=== PATIENT | female | born 1985 | race Caucasian/White ===

== ENCOUNTER 2016-04-26 18:05 | Emergency (ER) | payer OTHER ==
[2016-04-26 18:25] VITALS: BP 129/76
--- NOTE | 2016-04-26 18:50 | ER Document Report ---
ED Medical Screen (RME) - General Chief Complaint: Laceration Stated Complaint: LIP PAIN Mode of Arrival: Ambulatory Information source: Patient Notes: Patient states that her child jumped up hitting her lower lip. Patient with superficial lacerations inside lower lip. I have greeted and performed a rapid initial assessment of this patient. A comprehensive ED assessment and evaluation of the patient, analysis of test results and completion of the medical decision making process will be conducted by additional ED providers. TRAVEL OUTSIDE OF THE [place] IN LAST 30 DAYS: No - Related Data Allergies/Adverse Reactions: No Known Allergies Allergy (Verified 04/26/16 18:47) Past Medical History Musculoskeltal Medical History: Reports Hx Arthritis Past Surgical History: Reports: Hx Orthopedic Surgery - right knee - Immunizations Hx Diphtheria, Pertussis, Tetanus Vaccination: Yes Physical Exam - Vital signs Vitals: Temp Pulse Resp BP Pulse Ox 98.1 F 80 16 129/76 H 100 04/26/16 18:24 04/26/16 18:24 04/26/16 18:24 04/26/16 18:24 04/26/16 18:24 - Skin Skin irregularity: Laceration - Inside lower lip Course - Vital Signs Vital signs: Temp Pulse Resp BP Pulse Ox 98.1 F 80 16 129/76 H 100 04/26/16 18:24 04/26/16 18:24 04/26/16 18:24 04/26/16 18:24 04/26/16 18:24
--- NOTE | 2016-04-26 19:03 | ER Document Report ---
ED Wound - General Chief Complaint: Laceration Stated Complaint: LIP PAIN Time seen by provider: 18:58 Mode of Arrival: Ambulatory Information source: Patient Notes: 31-year-old female with no medical problems who was leaning down taking care of her son when son popped up hitting the patient in the chin. The patient presents with a laceration to inside of the lower lip from her upper teeth. TRAVEL OUTSIDE OF THE [place] IN LAST 30 DAYS: No - HPI Patient complains to provider of: Laceration Occurred: Just prior to arrival Onset/Duration: Sudden Quality of pain: Other - Minimal discomfort Severity: Mild Pain Level: 1 Context: Injury Skin Color: Normal Capillary refill: < 3 seconds Sensations intact: Yes Associated Symptoms: None - Related Data Allergies/Adverse Reactions: No Known Allergies Allergy (Verified 04/26/16 18:47) Past Medical History - General Information source: Patient - Social History Smoking Status: Current Every Day Smoker Cigarette use (# per day): Yes - half pack per day Chew tobacco use (# tins/day): No Frequency of alcohol use: Occasional Drug Abuse: None Lives with: Family Family History: Reviewed & Not Pertinent Patient has suicidal ideation: No Patient has homicidal ideation: No - Medical History Medical History: Negative Renal/ Medical History: Denies: Hx Peritoneal Dialysis Musculoskeltal Medical History: Reports Hx Arthritis Past Surgical History: Reports: Hx Orthopedic Surgery - right knee - Immunizations Hx Diphtheria, Pertussis, Tetanus Vaccination: Yes Review of Systems - Review of Systems Constitutional: No symptoms reported EENT: See HPI Cardiovascular: No symptoms reported Respiratory: No symptoms reported Gastrointestinal: No symptoms reported Genitourinary: No symptoms reported Female Genitourinary: No symptoms reported Musculoskeletal: No symptoms reported Skin: No symptoms reported Hematologic/Lymphatic: No symptoms reported Physical Exam - Vital signs Vitals: Temp Pulse Resp BP Pulse Ox 98.1 F 80 16 129/76 H 100 04/26/16 18:24 04/26/16 18:24 04/26/16 18:24 04/26/16 18:24 04/26/16 18:24 Notes: Physical exam: GENERAL: 81-year-old female, alert and oriented 3, no acute distress HEAD: Atraumatic, normocephalic. EYES: Pupils equal round and reactive to light, extraocular movements intact, sclera anicteric, conjunctiva are normal. ENT: Oral cavity clear. No loose teeth. The lower lip does have a laceration which is limited and does not extend to the scan. There is no active bleeding. NECK: Supple Face: The external face around the lower lip and chin show no evidence of laceration. Course - Re-evaluation Re-evalutation: 04/26/16 19:02 The laceration to the lower lip looks like it will heal well without sutures. I 've discussed this with the patient she seems fine with it. Her tetanus is up- to-date. - Vital Signs Vital signs: Temp Pulse Resp BP Pulse Ox 98.1 F 80 16 129/76 H 100 04/26/16 18:24 04/26/16 18:24 04/26/16 18:24 04/26/16 18:24 04/26/16 18:24 Discharge - Discharge Clinical Impression: lip laceration Condition: Stable Disposition: HOME, SELF-CARE Additional Instructions: Recommendations: As we discussed, this laceration will heal very well without sutures. Go with salt water rinses or Listerine rinses twice daily. This laceration usually heals over the next week. Return to the emergency room for any concerns that it is not healing, increased pain, fever or increased swelling.
== END 2016-04-26 19:05 | disposition home or self-care (01) ==
LOC: ER 18:05
DX: S01.511A Laceration without foreign body of lip, initial encounter (principal); W51.XXXA Accidental striking against or bumped into by another person, initial encounter; Y93.F9 Activity, other caregiving; F17.210 Nicotine dependence, cigarettes, uncomplicated
CPT/HCPCS: 99282

== ENCOUNTER → 2017-08-03 | Outpatient (CLI) | payer OTHER ==
--- NOTE | 2017-08-03 18:29 | WOMENS IMAGING REPORT ---
EXAM DESCRIPTION: BILAT DIAGNOSTIC MAMMO W/CAD; U/S BREAST UNILAT LIMITED COMPLETED DATE/TIME: 08/03/2017 8:54 am; 08/03/2017 10:39 am REASON FOR STUDY: UNSPECIFIED LUMP; N63.0; BREAST LUMP N63.0 UNSPECIFIED LUMP IN UNSPECIFIED BREAS T COMPARISON: None. TECHNIQUE: Standard craniocaudal and mediolateral oblique views of each breast recorded using digita l acquisition. Bilateral 90 mediolateral views were obtained. Bilateral cone compression in the CC and MLO orienta tions. Bilateral breast ultrasound was also performed. LIMITATIONS: None. FINDINGS: RIGHT BREAST MASSES: No suspicious masses. CALCIFICATIONS: No new or suspicious calcifications. ARCHITECTURAL DISTORTION: None. DEVELOPING DENSITY: None. ASYMMETRY: None noted. OTHER: No other significant findings. LEFT BREAST MASSES: No suspicious masses. CALCIFICATIONS: No new or suspicious calcifications. ARCHITECTURAL DISTORTION: None. DEVELOPING DENSITY: None. ASYMMETRY: None noted. OTHER: No other significant finding. Read with the assistance of CAD: .[facility] - R2 Cenova Version 1.3 .[facility] Imaging - R2 Cenova Version 1.3 .[facility] - R2 Cenova Version 2.4 .[facility] [place] R2 Cenova Version 2.4 .[facility] - R2 Elevator Operator Service Version 9.2 Bilateral breast ultrasound: Patient indicates bilateral palpable retroareolar lesions. In Ultrasound of the right breast retroareolar region demonstrates no dilated ducts. No cysts. No m asses. No worrisome acoustic absorption. Ultrasound of the left breast retroareolar region demonstrates no dilated ducts. No cysts. No shin s. No worrisome acoustic absorption. IMPRESSION: No mammographic or sonographic evidence for malignancy bilaterally. BREAST DENSITY: c. The breasts are heterogeneously dense, which may obscure small masses. BIRAD: 2 Benign findings. RECOMMENDATION: RECOMMENDED FOLLOW UP: Patient should begin bilateral screening mammography/tomosynt hesis at age 40. Patient should begin screening prior at age 40 if found to have an elevated lifetim e risk of breast cancer using the Olivia model assessment SPECIFIC INTERVENTION/IMAGING/CONSULTATION RECOMMENDED:No additional intervention/ imaging/consultati on needed at this time. COMMUNICATION:Patient notified by letter COMMENT: The patient has been notified of the results by letter per MQSA requirements. Additional no tification policies are in place for contacting patient with suspicious or incomplete findings. Quality ID #[id number]: The [employer] recommends an annual screening mammogram for women aged 40 years or over. This facility utilizes a reminder system to ensure that all patients receive reminder letters, and/or direct phone calls for appointments. This includes reminders for routine scr eening mammograms, diagnostic mammograms, or other Breast Imaging Interventions when appropriate. Th is patient will be placed in the appropriate reminder system. The [employer] (ACR) has developed recommendations for screening MRI of the breast s in certain patient populations, to be used in conjunction with mammography. Breast MRI surveillanc e may be appropriate for women with more than 20% lifetime risk of developing breast cancer as deter mined by genetic testing, significant family history of the disease, or history of mantle radiation f or Hodgkins Disease. ACR Practice Guidelines 2008. TECHNICAL DOCUMENTATION: FINDING NUMBER: (1) ASSESSMENT: (1) JOB ID: [id number] [employer]- All Rights Reserved Reading location - IP/workstation name: [facility]
--- NOTE | 2017-08-03 18:30 | WOMENS IMAGING REPORT ---
EXAM DESCRIPTION: BILAT DIAGNOSTIC MAMMO W/CAD; U/S BREAST UNILAT LIMITED COMPLETED DATE/TIME: 08/03/2017 8:54 am; 08/03/2017 10:39 am REASON FOR STUDY: UNSPECIFIED LUMP; N63.0; BREAST LUMP N63.0 UNSPECIFIED LUMP IN UNSPECIFIED BREAS T COMPARISON: None. TECHNIQUE: Standard craniocaudal and mediolateral oblique views of each breast recorded using digita l acquisition. Bilateral 90 mediolateral views were obtained. Bilateral cone compression in the CC and MLO orienta tions. Bilateral breast ultrasound was also performed. LIMITATIONS: None. FINDINGS: RIGHT BREAST MASSES: No suspicious masses. CALCIFICATIONS: No new or suspicious calcifications. ARCHITECTURAL DISTORTION: None. DEVELOPING DENSITY: None. ASYMMETRY: None noted. OTHER: No other significant findings. LEFT BREAST MASSES: No suspicious masses. CALCIFICATIONS: No new or suspicious calcifications. ARCHITECTURAL DISTORTION: None. DEVELOPING DENSITY: None. ASYMMETRY: None noted. OTHER: No other significant finding. Read with the assistance of CAD: .[facility] - R2 Cenova Version 1.3 .[facility] Imaging - R2 Cenova Version 1.3 .[facility] Imaging - R2 Cenova Version 2.4 .[facility] [place] R2 Cenova Version 2.4 .[facility] - R2 Air Plant Engineer Version 9.2 Bilateral breast ultrasound: Patient indicates bilateral palpable retroareolar lesions. In Ultrasound of the right breast retroareolar region demonstrates no dilated ducts. No cysts. No m asses. No worrisome acoustic absorption. Ultrasound of the left breast retroareolar region demonstrates no dilated ducts. No cysts. No shin s. No worrisome acoustic absorption. IMPRESSION: No mammographic or sonographic evidence for malignancy bilaterally. BREAST DENSITY: c. The breasts are heterogeneously dense, which may obscure small masses. BIRAD: 2 Benign findings. RECOMMENDATION: RECOMMENDED FOLLOW UP: Patient should begin bilateral screening mammography/tomosynt hesis at age 40. Patient should begin screening prior at age 40 if found to have an elevated lifetim e risk of breast cancer using the Olivia model assessment SPECIFIC INTERVENTION/IMAGING/CONSULTATION RECOMMENDED:No additional intervention/ imaging/consultati on needed at this time. COMMUNICATION:Patient notified by letter COMMENT: The patient has been notified of the results by letter per MQSA requirements. Additional no tification policies are in place for contacting patient with suspicious or incomplete findings. Quality ID #[id number]: The [employer] recommends an annual screening mammogram for women aged 40 years or over. This facility utilizes a reminder system to ensure that all patients receive reminder letters, and/or direct phone calls for appointments. This includes reminders for routine scr eening mammograms, diagnostic mammograms, or other Breast Imaging Interventions when appropriate. Th is patient will be placed in the appropriate reminder system. The [employer] (ACR) has developed recommendations for screening MRI of the breast s in certain patient populations, to be used in conjunction with mammography. Breast MRI surveillanc e may be appropriate for women with more than 20% lifetime risk of developing breast cancer as deter mined by genetic testing, significant family history of the disease, or history of mantle radiation f or Hodgkins Disease. ACR Practice Guidelines 2008. TECHNICAL DOCUMENTATION: FINDING NUMBER: (1) ASSESSMENT: (1) JOB ID: [id number] [employer]- All Rights Reserved Reading location - IP/workstation name: [facility]
--- NOTE | 2017-08-03 18:30 | WOMENS IMAGING REPORT ---
EXAM DESCRIPTION: BILAT DIAGNOSTIC MAMMO W/CAD; U/S BREAST UNILAT LIMITED COMPLETED DATE/TIME: 08/03/2017 8:54 am; 08/03/2017 10:39 am REASON FOR STUDY: UNSPECIFIED LUMP; N63.0; BREAST LUMP N63.0 UNSPECIFIED LUMP IN UNSPECIFIED BREAS T COMPARISON: None. TECHNIQUE: Standard craniocaudal and mediolateral oblique views of each breast recorded using digita l acquisition. Bilateral 90 mediolateral views were obtained. Bilateral cone compression in the CC and MLO orienta tions. Bilateral breast ultrasound was also performed. LIMITATIONS: None. FINDINGS: RIGHT BREAST MASSES: No suspicious masses. CALCIFICATIONS: No new or suspicious calcifications. ARCHITECTURAL DISTORTION: None. DEVELOPING DENSITY: None. ASYMMETRY: None noted. OTHER: No other significant findings. LEFT BREAST MASSES: No suspicious masses. CALCIFICATIONS: No new or suspicious calcifications. ARCHITECTURAL DISTORTION: None. DEVELOPING DENSITY: None. ASYMMETRY: None noted. OTHER: No other significant finding. Read with the assistance of CAD: .[facility] - R2 Cenova Version 1.3 .[facility] Imaging - R2 Cenova Version 1.3 .[facility] Imaging - R2 Cenova Version 2.4 .[facility] [place] R2 Cenova Version 2.4 .[facility] - R2 Zinc Chloride Operator Version 9.2 Bilateral breast ultrasound: Patient indicates bilateral palpable retroareolar lesions. In Ultrasound of the right breast retroareolar region demonstrates no dilated ducts. No cysts. No m asses. No worrisome acoustic absorption. Ultrasound of the left breast retroareolar region demonstrates no dilated ducts. No cysts. No shin s. No worrisome acoustic absorption. IMPRESSION: No mammographic or sonographic evidence for malignancy bilaterally. BREAST DENSITY: c. The breasts are heterogeneously dense, which may obscure small masses. BIRAD: 2 Benign findings. RECOMMENDATION: RECOMMENDED FOLLOW UP: Patient should begin bilateral screening mammography/tomosynt hesis at age 40. Patient should begin screening prior at age 40 if found to have an elevated lifetim e risk of breast cancer using the Olivia model assessment SPECIFIC INTERVENTION/IMAGING/CONSULTATION RECOMMENDED:No additional intervention/ imaging/consultati on needed at this time. COMMUNICATION:Patient notified by letter COMMENT: The patient has been notified of the results by letter per MQSA requirements. Additional no tification policies are in place for contacting patient with suspicious or incomplete findings. Quality ID #[id number]: The [employer] recommends an annual screening mammogram for women aged 40 years or over. This facility utilizes a reminder system to ensure that all patients receive reminder letters, and/or direct phone calls for appointments. This includes reminders for routine scr eening mammograms, diagnostic mammograms, or other Breast Imaging Interventions when appropriate. Th is patient will be placed in the appropriate reminder system. The [employer] (ACR) has developed recommendations for screening MRI of the breast s in certain patient populations, to be used in conjunction with mammography. Breast MRI surveillanc e may be appropriate for women with more than 20% lifetime risk of developing breast cancer as deter mined by genetic testing, significant family history of the disease, or history of mantle radiation f or Hodgkins Disease. ACR Practice Guidelines 2008. TECHNICAL DOCUMENTATION: FINDING NUMBER: (1) ASSESSMENT: (1) JOB ID: [id number] [employer]- All Rights Reserved Reading location - IP/workstation name: [email or web address]
== END ==
LOC: WI 08:25
PROVIDERS: ATTEND Physician Assistant
DX: R92.2 Inconclusive mammogram (principal)
CPT/HCPCS: 76642; 77066